=== PATIENT | male | born 1970 | race Caucasian/White ===

== ENCOUNTER 2018-02-24 16:00 | Outpatient (RCR) | payer OTHER, SELFPAY ==
--- NOTE | 2018-02-17 13:18 | HP.PTEVAL ---
Patient's Visit Information DARIEN LOVING is a 47 year old M referred to Physical Therapy by DAVID Conley with a diagnosis of R biceps tendonitis. Date of Evaluation: 02/17/18 Physical Therapist: Dylan Miranda PT, - Visit Plan Frequency: 1x/Week Duration: 1 Week Plan: Issue HEP of R shoulder rot cuff strengthening and scap stab ex's - Subjective Subjective: Pt reports he has had pain in his R shoulder for about one month. Pt reports he was lifting weights in a gym when he noticed severe R shoulder pain. Pt reports His pain progressively worsened to the point he had to see a Dr. Pt reports he did receive an injection, which has decreased his pain trendously. Pt is R hand dominant. Pt reports his goal is to be able to bench 305 pounds again without pain. No T or N at this time. Pt denies sleep diff secondary to pain. 0/10 at rest, 1/10 while benching. - Pain R shoulder Pain Intensity (Out of 10): 0 Pain Intensity Range: 1 - Objective Neuro: B UE sensation is WNL to light touch. B bicepital reflex= 1/3. Palpation: Pain on the anterior aspect. No obvious deformity. ROM: flex= 170, abd= 165, ER= 80, IR WNL; R shoulder flex= 170, abd= 170, ER= 80, IR WNL. MMT: B shoulder 5/5 throughout. Special test: pos speeds test - Goals Goal 1:: I with HEP in one visit Goal Time Frame: 1 Week - Rehabilitation Potential Physical Therapy Diagnosis: R shoulder pain and difficulty with lifting weights secondary to R biceps tendonitis Rehabilitation Potential: Good - Anticipated Interventions Patient/Client Instruction: Educate patient on: Condition, Plan of Care For the Purpose of:: To improve self management Therapeutic Exercise to Include: Strength training, Scapular Strength/Stabilization For the Purpose of:: To decrease pain, To improve muscle performance and motor function Ultrasound (thermal/non thermal): Yes For the Purpose of:: To decrease pain Thank you for the opportunity to evaluate your patient. For Medicare and Medicare HMO plans, please review the plan of care and approve it. It will need to be FAXED BACK to us at [phone] for Medicare purposes. Please let me know if there are questions or concerns regarding this plan of care. Physician Signature: Date:
--- NOTE | 2018-02-17 13:21 | HP.PTEVAL_ITS ---
Patient's Visit Information DARIEN LOVING is a 47 year old M referred to Physical Therapy by DAVID Conley with a diagnosis of R biceps tendonitis. Date of Evaluation: 02/17/18 Physical Therapist: Dylan Miranda PT, - Visit Plan Frequency: 1x/Week Duration: 1 Week Plan: Issue HEP of R shoulder rot cuff strengthening and scap stab ex's - Subjective Subjective: Pt reports he has had pain in his R shoulder for about one month. Pt reports he was lifting weights in a gym when he noticed severe R shoulder pain. Pt reports His pain progressively worsened to the point he had to see a Dr. Pt reports he did receive an injection, which has decreased his pain trendously. Pt is R hand dominant. Pt reports his goal is to be able to bench 305 pounds again without pain. No T or N at this time. Pt denies sleep diff secondary to pain. 0/10 at rest, 1/10 while benching. - Pain R shoulder Pain Intensity (Out of 10): 0 Pain Intensity Range: 1 - Objective Neuro: B UE sensation is WNL to light touch. B bicepital reflex= 1/3. Palpation: Pain on the anterior aspect. No obvious deformity. ROM: flex= 170, abd= 165, ER= 80, IR WNL; R shoulder flex= 170, abd= 170, ER= 80, IR WNL. MMT: B shoulder 5/5 throughout. Special test: pos speeds test - Goals Goal 1:: I with HEP in one visit Goal Time Frame: 1 Week - Rehabilitation Potential Physical Therapy Diagnosis: R shoulder pain and difficulty with lifting weights secondary to R biceps tendonitis Rehabilitation Potential: Good - Anticipated Interventions Patient/Client Instruction: Educate patient on: Condition, Plan of Care For the Purpose of:: To improve self management Therapeutic Exercise to Include: Strength training, Scapular Stren gth/Stabilization For the Purpose of:: To decrease pain, To improve muscle performance and motor function Ultrasound (thermal/non thermal): Yes For the Purpose of:: To decrease pain Thank you for the opportunity to evaluate your patient. For Medicare and Medicare HMO plans, please review the plan of care and approve it. It will need to be FAXED BACK to us at [phone] for Medicare purposes. Please let me know if there are questions or concerns regarding this plan of c are. Physician Signature: Date:
--- NOTE | 2018-03-31 15:44 | HP.PTDCSUM ---
HP - PT D/C Summary It has been my pleasure to treat DARIEN LOVING under orders from DAVID Conley, for the diagnosis of R biceps tendonitis for a total of 2 visit(s). Discharge Date: Please see the following information for a summary of their discharge status. - Subjective Subjective: No pain this date - Pain R shoulder Pain Intensity (Out of 10): 0 - Overall Improvement % Improvement: 100 - Objective Objective/Function: Pt now I with HEP - Goals Goal 1:: I with HEP in one visit - Plan Plan: Discharge - D/C Information If there are questions or concerns regarding this patient's physical therapy, please feel free to call me at [phone]. Thank you for the referral of this patient. Sincerely, Dylan Miranda, PT,
== END 2018-02-24 19:00 | disposition home or self-care (01) ==
LOC: PT 16:00
PROVIDERS: Family Provider Family Medicine; PCP Family Medicine; Referring Provider Physician Assistant; Visit Provider Physician Assistant
DX: M75.21 Bicipital tendinitis, right shoulder (principal); M75.80 Other shoulder lesions, unspecified shoulder
CPT/HCPCS: 97035; 97110; 97162

== ENCOUNTER 2019-04-30 09:56 | Emergency (ER) | payer OTHER, SELFPAY ==
[2019-04-30 09:57] VITALS: BP 130/73; PULSE 66; RESP 16; TEMP 36.8; O2SAT 99; BMI 29.0
--- NOTE | 2019-04-30 10:20 | RAD_ITS ---
STUDY: X-RAY CHEST REASON FOR EXAM: Male, 48 years old. Feels like pill is stuck in the throat TECHNIQUE: PA and lateral views of the chest. COMPARISON: None. FINDINGS: No radiopaque foreign body noted The lungs are clear and expanded. There is no demonstrated pleural abnormality. Normal size heart. Normal mediastinum and manuel. Normal visualized pulmonary arteries. Normal visualized aortic arch and descending thoracic aorta. Normal visualized thoracic spine. Normal visualized ribs, clavicles, and shoulders. There is no demonstrated abnormality of the visualized soft tissue structures of the upper abdomen. RAD/Chest PA and Lateral IMPRESSION: Normal x-ray examination of the chest. No radiopaque foreign body. Electronically Signed: Sanjay Ruiz DO at 11:08 EST Tel , Service support ,
[2019-04-30] MEDS: Ketorolac 15 MG/ML Vial IM (10:27)
--- NOTE | 2019-04-30 10:56 | ED.VIS.GEN ---
History of Present Illness <Megan Aly - Last Filed: 04/30/19 10:56> Narrative: 48-year-old male presents with esophageal irritation. States that 4 days ago he woke up in the middle of the night to use the bathroom and had been started on an antibiotic for a skin cyst which was infected which he took at that time. States when he woke up he had a sore throat which is worsened since that time. Worse with swallowing. Patient is able to swallow his own saliva. Denies any shortness of breath. <Marcus Chu - Last Filed: 04/30/19 11:41> Chief Complaint: Sore Throat Past Medical History Surgical History: no surgical history Smoking Status: Never smoker - Family History Maternal Family History: Reports: No pertinent history <Megan Aly - Last Filed: 04/30/19 10:56> <Marcus Chu - Last Filed: 04/30/19 11:41> - Allergies and Home Meds Allergies/Adverse Reactions: Allergies levofloxacin [From Levaquin] Adverse Reaction (Verified 04/30/19 09:57) Nausea Primary Care Physician: Kaushik Torres MD [Primary Care Provider] - Review of Systems General: Denies: Chills, Fever, Sweats Eyes: Denies: Visual changes - bilaterally, Diplopia ENT: Reports: Sore throat. Denies: Rhinorrhea Cardiovascular: Denies: Chest pain, Palpitations Respiratory: Denies: Dyspnea, Cough, Dyspnea on exertion Gastrointestinal: Denies: Abdominal pain, Nausea, Vomiting, Diarrhea, Melena, Hematochezia Genitourinary: Denies: Dysuria, Hematuria, Frequency Musculoskeletal: Denies: Back pain, Extremity Pain Skin: Denies: Rash, Wounds Neurological: Denies: Headache, Weakness, Numbness <Marcus Chu - Last Filed: 04/30/19 11:41> Physical Exam Vital Signs/Narrative: Vital Signs Temp Pulse Resp BP Pulse Ox 04/30/19 09:57 98.3 F 66 16 130/73 H 99 <Megan Aly - Last Filed: 04/30/19 10:56> Vital Signs/Narrative: Vital Signs Temp Pulse Resp BP Pulse Ox 04/30/19 09:57 98.3 F 66 16 130/73 H 99 Inital Vital Signs reviewed: Yes General: Well nourished, Well developed, No Acute Distress Head: Normocephalic, Atraumatic Eyes: Perrl, EOMI ENT: Moist mucous membranes, No rhinorrhea Neck: Supple, Nontender Cardiovascular: Regular rate, Regular rhythm, No murmurs Respiratory: No distress, CTA bilaterally, Chest nontender Abdomen: Soft, Nontender, Nondistended, Normal bowel sounds Back: Nontender, Normal Inspection Extremities: Nontender, No edema Skin: Normal color, No rash Neurological: Alert, Oriented x3, Cranial nerves II-XII grossly intact, Normal Strength, Normal Sensation Psychological: Normal affect, Normal Mood <Marcus Chu - Last Filed: 04/30/19 11:41> Diagnostic/Tx/Re-eval - Medical Decision Making Patient seen with Dr. Plummer agree with history and physical exam as above, patient reports he swallowed an antibiotic pill a few days ago and he feels if the antibiotic pill did not go down and it may be stuck in his esophagus or injured his esophagus, he is having no difficulty with speaking or breathing or executing daily activities,, on exam his HEENT exam is unremarkable lungs are clear heart tones normal M soft nontender He has no difficulty with swallowing generally, he has in no distress now, given all the above we will obtain chest x-ray see the chart for full detail management options and disposition <Megan Aly - Last Filed: 04/30/19 10:56> Chest X-Ray - ED: 2 View No acute process indicated on chest x-ray. - Medical Decision Making Patient appears well nontoxic. Vital signs within normal limits. Chest x-ray normal. Patient likely has pill esophagitis for which she was given a GI cocktail as well as intramuscular Toradol. Will be given Protonix for home and follow-up with his primary care provider Dr. Torres who can refer him to [facility] if warranted. Patient was agreeable and asked to return for new or worsening symptoms. Discharged home in stable condition. <Marcus Chu - Last Filed: 04/30/19 11:41> ED Disposition <Megan Aly - Last Filed: 04/30/19 10:56> <Marcus Chu - Last Filed: 04/30/19 11:41> - Plan for ED Patient: Disposition: Psychiatric Hospital or Unit Diagnosis: Pill esophagitis Prescriptions: Pantoprazole Sodium [Protonix] 40 mg PO DAILY #14 tab Prescription Printed Referrals: Kaushik Torres MD [Primary Care Provider] - Additional Instructions: You have been diagnosed with pill esophagitis. Follow up with your primary care provider for referral to GI.
[2019-04-30] MEDS: Mag Hydrox/Al Hydrox/Simeth 30 ML UDC PO (11:58)
[2019-04-30 12:00] VITALS: RESP 16
--- NOTE | 2019-04-30 12:05 | ED.RN ---
REVIEWED D/C INSTRUCTIONS, FOLLOW UP CARE, PRESCRIPTION, AND S/S THAT WOULD WARRANT A RETURN TO THE ED WITH PT. PT VERBALIZED AN UNDERSTANDING AND DENIES FURTHER QUESTIONS FOR THIS RN. PT SKIN P/W/D, RESP EVEN AND UNLABORED, PT A&O X 3, NO DISTRESS NOTED. PT AMBULATED OUT OF ED, GAIT STEADY.
== END 2019-04-30 12:08 | disposition home or self-care (01) ==
PROVIDERS: Emergency Provider Emergency Medicine; Family Provider Family Medicine; PCP Family Medicine
DX: K20.8 Other esophagitis (principal); B99.9 Unspecified infectious disease; Z79.2 Long term (current) use of antibiotics
CPT/HCPCS: 71046; 96372; 99283

== ENCOUNTER → 2020-10-23 05:46 | Outpatient (CLI) | payer OTHER, SELFPAY ==
[2020-10-23 07:11] LABS: Protein, Urine (Random) 17.8 mg/dL (<11.9); Protein:Creat Ratio 84 mg/g CRE (0-200)
[2020-10-23 07:24] LABS: Albumin, Serum 3.7 g/dL (3.2-5.0); BUN 24 mg/dL (7-18); BUN/Creat Ratio 18.6 RATIO (10-20); Chloride 106 mmol/L (98-107); Creatinine, Serum 1.29 mg/dL (0.70-1.30); EST Glomerular Filtration Rate 63 mL/min (>60); Est Glom Filt Rate - Afr Amer 76 mL/min (>60); Glucose 80 mg/dL (74-106); Phosphorus 2.9 mg/dL (2.5-4.9); Potassium 3.9 mmol/L (3.5-5.1); Sodium Level 139 mmol/L (136-145)
== END ==
PROVIDERS: PCP Family Medicine; Referring Provider Internal Medicine Nephrology; Visit Provider Internal Medicine Nephrology
DX: R79.89 Other specified abnormal findings of blood chemistry (principal)
CPT/HCPCS: 80069; 82570; 84156

== ENCOUNTER → 2022-04-30 | Outpatient (CLI) | payer OTHER, SELFPAY ==
--- NOTE | 2022-04-30 06:52 | MRI_ITS ---
STUDY: MRI LEFT SHOULDER REASON FOR EXAM: Male, 51 years old. Weightlifting injury. Pain. History of previous surgery. TECHNIQUE: Standardized fat and water weighted pulse sequences were obtained in all 3 orthogonal planes. COMPARISON: X-rays of the left shoulder dated December 22, 2021. FINDINGS: Supraspinatus tendinosis with thickening and increased signal intensity. Partial articular surface tear of the mid fibers measuring 3 mm in widest diameter and occupying approximately 50% of the tendon thickness (coronal series 4 images 6-10). Infraspinatus tendinosis with thickening and articular surface fraying without a full-thickness tear (coronal series 4 images 11-14). Subscapularis tendinosis with thickening and increased signal intensity without a full-thickness tear (axial series 2 images 8-13). Normal teres minor tendon. Normal supraspinatus muscle. Normal infraspinatus muscle. Normal subscapularis muscle. Normal teres minor muscle. Mild arthrosis of the glenohumeral joint with a small glenohumeral joint effusion (axial series 2 images a-17 comparison. Cystic change in the humeral head (axial series 2 images 7-13). Normal biceps labral complex. Normal intracapsular long biceps tendon. Linear increased signal intensity within the superior labrum without a displaced tear (coronal series 4 images 7-scan). Normal capsulo- ligamentous complex. Normal rotator interval. AC joint hypertrophy with minimal bone marrow edema in the distal clavicle and acromion with narrowing of the subacromial space (coronal series 4 images 4-8). There is a Type II morphology (curved), with a neutral orientation. Small amount of fluid in the subacromial-subdeltoid bursa (coronal series 4 image 6). Normal visualized coracohumeral and coracoacromial ligaments. Normal quadrilateral space. Normal axillary space. Normal deltoid muscle. Normal trapezius muscle. MRI/Upper Ext Joint Only(Routine) IMPRESSION: Supraspinatus, infraspinatus and subscapularis tendinosis as described. Small partial articular surface tear of the supraspinatus. Mild arthrosis of the glenohumeral joint. Cystic change in the humeral head. Linear increased signal intensity within the superior labrum without a detached tear. AC joint hypertrophy with minimal narrowing of the subacromial space. Glenohumeral joint effusion with fluid in the subacromial-subdeltoid bursa. Electronically Signed: Sourav Turner, at 13:14 EST ,
== END | disposition home or self-care (01) ==
PROVIDERS: PCP Family Medicine; Referring Provider Physician Assistant; Visit Provider Physician Assistant
DX: S49.92XA Unspecified injury of left shoulder and upper arm, initial encounter (principal); M25.512 Pain in left shoulder
CPT/HCPCS: 73221

== ENCOUNTER 2024-02-01 21:45 | Emergency (ER) | payer OTHER, SELFPAY ==
[2024-02-01 21:45] VITALS: BP 143/79; PULSE 72; RESP 18; TEMP 36.1; O2SAT 99; BMI 28.5
--- NOTE | 2024-02-01 22:25 | RAD_ITS ---
STUDY: X-RAY CHEST REASON FOR EXAM: Male, 53 years old. Chest pain TECHNIQUE: PA and lateral views of the chest. COMPARISON: April 30, 2019 FINDINGS: The lungs are clear and expanded. There is no demonstrated pleural abnormality. Normal size heart. Normal mediastinum and manuel. Normal visualized pulmonary arteries. Normal visualized aortic arch and descending thoracic aorta. Normal visualized thoracic spine. Normal visualized ribs, clavicles, and shoulders. There is no demonstrated abnormality of the visualized soft tissue structures of the upper abdomen. RAD/Chest PA and Lateral IMPRESSION: Normal x-ray examination of the chest. Electronically Signed: Tone Soto MD at 23:06 EDT ,
[2024-02-01 22:30] LABS: Absolute Lymphocyte Count 3.42 X10^3/uL (0.83-4.51); Basophil# 0.04 X10^3/uL; Basophil% 0.4 % (0-1); Eosinophil# 0.44 X10^3/uL; Eosinophils% 4.1 % (0-5); Hematocrit 43.7 % (40-54); Hemoglobin 14.8 g/dL (13.0-16.5); Lymphocyte # 3.42 X10^3/ul (0.83-4.51); Lymphocyte % 32.1 % (19-41); Mean Corp Hgb Conc 33.9 g/dL (32-36); Mean Corpuscular Hgb 29.9 pg (27.0-32.0); Mean Corpuscular Volume 88.3 fL (80-94); Mean Platelet Vol. 8.6 fl (6.2-12.0); Monocyte# 0.71 X10^3/uL; Monocyte% 6.7 % (0-10); NRBC Flagged by Analyzer 0 % (0-5); Neutrophil # 6.04 X10^3/uL (2.7-7.7); Neutrophil % 56.5 % (47-70); Platelet Count 219 K/mm3 (150-450); RBC Distribution Width CV 12.4 % (11.6-14.6); Red Blood Count 4.95 M/mm3 (4.6-6.2); White Blood Count 10.7 K/mm3 (4.4-11.0)
--- NOTE | 2024-02-01 22:33 | EDS_ITS ---
HPI History of Present Illness Chief Complaint: Chest Pain Informant: patient Narrative Narrative: Patient is a 53-year-old male with past medical history of hypertension and mild hyperlipidemia. He states that around 915 this evening he developed some midsternal chest discomfort which she described as a pressure and he felt mild radiation towards his jaw. He states there was no associated nausea vomiting or diaphoresis. He reports that symptoms lasted for approximately 30 minutes to an hour and then have spontaneously resolved. He states that he is unsure if this was cardiac in nature and in order to rule this in or out he presents for evaluation. He denies any previous history of cardiovascular disease or illicit drug use or excessive stimulant use. He denies any recent surgery or history of DVT/PE but does admit to prolonged travel. [facility] Medical History Arthrosis of left acromioclavicular joint SLAP lesion of left shoulder Left rotator cuff tear Hypertension Home Medications ?Medication ?Instructions ?Recorded ?Last Taken ?Type pantoprazole 40 mg tablet,delayed 40 mg PO DAILY #14 tabs 04/30/19 Unknown Rx release meloxicam 15 mg tablet 15 mg PO DAILY #30 tabs 12/22/21 Unknown Rx Allergy/AdvReac Type Severity Reaction Status Date / Time levofloxacin (From Levaquin) AdvReac Nausea Verified 02/01/24 21:45 Surgical History distal bicep repair H/O hernia repair Social History Smoking Status: Never smoker [facility] ED Constitutional Constitutional ED: Denies chills or fever(s) Eyes Eyes: Denies blurry vision or change in vision ENT ENT ED: Denies sore throat Cardiovascular Cardiovascular: Reports chest pain; Denies palpitations or racing heartbeat Respiratory/Chest Respiratory/Chest: Denies cough or dyspnea Gastrointestinal Gastrointestinal: Denies abdominal pain, diarrhea, nausea or vomiting Genitourinary Genitourinary ED: Denies dysuria Musculoskeletal Musculoskeletal: Denies back pain Integumentary Denies rash Neurologic Neurologic: Denies headache(s) Hematologic/Lymphatic Hematologic/Lymphatic: Denies easy bleeding or easy bruising EXAM Physical Exam Const Vital Signs: 02/01/24 21:45 09/17/24 22:45 02/01/24 23:37 Temperature 97 F L Temperature Source Temporal Pulse Rate 72 70 67 Respiratory Rate 18 14 17 Blood Pressure 143/79 H Blood Pressure Mean 100 Pulse Ox 99 100 Oxygen Delivery Method Room Air 02/02/24 00:00 Temperature Temperature Source Pulse Rate 67 Respiratory Rate 12 Blood Pressure 126/81 H Blood Pressure Mean 96 Pulse Ox 98 Oxygen Delivery Method Room Air Positive well nourished and well developed General Appearance ED: well developed; Negative for pallor HEENT HEENT Narrative: Normocephalic atraumatic Eyes PERRL and EOMs intact bilaterally General Eye ED: Negative for scleral icterus Neck supple and no JVD Neck Narrative: No nuchal rigidity or meningeal signs Chest Wall palpation of chest normal Chest Narrative: No bony deformity or crepitance Resp normal respiratory effort and clear to auscultation bilaterally Cardio regular rate and regular rhythm Rate: other Other Details: Heart is regular rate and rhythm without murmurs rubs or gallop No carotid bruit noted Radial and carotid pulses are equal and symmetric GI normal to inspection, nondistended, normoactive bowel sounds, non-tender, non- distended and no masses GI Narrative: No voluntary guarding or rigidity or pulsatile mass Auscultation: normoactive bowel sounds Palpation: soft Extremity normal to inspection Extremity Narrative: No asymmetric edema no pitting edema negative Homans' sign bilaterally Neuro oriented x3, CN's II-XII intact bilaterally and no sensory deficits noted Sensorium / Orientation: alert Motor Exam: strength 5/5 throughout Psych mental status grossly normal Skin no rashes or lesions noted General Skin Exam: Negative for jaundice or pallor MDM MDM MDM Narrative Medical decision making narrative: The patient arrived to the ER slightly hypertensive but otherwise with stable vitals. He also reported spontaneous resolution of his symptoms prior to arriva l. Differential diagnosis is for acute coronary syndrome versus cardiac dysrhythmia versus pneumonia versus pneumothorax versus pulmonary embolus. Secondary to this basic blood work with chest x-ray and a D-dimer ordered. Chest x-ray revealed no lung pathology and no widening mediastinum this coupled with a normal D-dimer goes against pulmonary embolus and/or dissection. The patient's initial troponin was 7 and the delta was 8 which is not clinically significant and not consistent with acute coronary syndrome. The patient was kept on the monitor and there was no cardiac dysrhythmia. On reevaluation he is resting comfortably and his symptoms remain resolved and therefore at this time with overall negative workup and spontaneous resolution of symptoms there is no need to keep the patient in the hospital any further and he is otherwise safe for discharge. History & Record Review Discussion w/independent historian: Patient and Significant other Lab Data Attestation: I reviewed the patient's lab results. Labs: Laboratory Results - last 24 hr 02/01/24 02/02/24 21:56 00:05 WBC 10.7 RBC 4.95 Hgb 14.8 Hct 43.7 MCV 88.3 MCH 29.9 MCHC 33.9 RDW Std Deviation 40.0 RDW Coeff of Rufina 12.4 Plt Count 219 MPV 8.6 Immature Gran % (Auto) 0.200 Neut % (Auto) 56.5 Lymph % (Auto) 32.1 [place] % (Auto) 6.7 Eos % (Auto) 4.1 Baso % (Auto) 0.4 Absolute Neuts (auto) 6.0 Absolute Lymphs (auto) 3.42 Nucleated RBC % 0 D-Dimer Quant (PE/DVT) < 0.27 L Sodium 138 Potassium 4.0 Chloride 105 Carbon Dioxide 27.0 Anion Gap 6 BUN 23 H Creatinine 1.31 H Estim Creat Clear Calc 79.01 Est GFR (MDRD) Af Amer 74 Est GFR (MDRD) Non-Af 61 BUN/Creatinine Ratio 17.6 Glucose 101 Calcium 9.4 Magnesium 1.9 Troponin I High Sens 7 8 Radiography Diagnostic Testing: Clinical Impression(s) from Imaging Studies Chest X-Ray 02/01/24 22:25 IMPRESSION: Normal x-ray examination of the chest. Electronically Signed: Tone Soto MD at 23:06 EDT , Chest x-ray as interpreted by the emergency medicine physician reveals no acute infiltrate pneumothorax pleural effusion or widening of the mediastinum Discharge Plan Triage Chief Complaint: Chest Pain ED Provider: Noam Dasilva Dx/Rx/DC Orders Clinical Impression: Nonspecific chest pain, Hypertension Instructions: ED Chest Pain, Uncertain Cause Prescriptions: No Action meloxicam 15 mg tablet 15 mg PO DAILY Qty: 30 0RF pantoprazole 40 MG tablet 40 mg PO DAILY Qty: 14 0RF Primary Care Provider: Kaushik Torres Referrals: Kaushik Torres MD [Primary Care Provider] - Activity Restrictions/Additional Instructions: Please follow-up with your family doctor for repeat evaluation and return to the ER should you have any further concerns Print Language: Zambian Disposition Disposition: Home, Self Care
[2024-02-01 22:45] VITALS: PULSE 70; RESP 14; O2SAT 100
[2024-02-01 22:47] LABS: Anion Gap 6 (5-15); BUN 23 mg/dL (7-18); BUN/Creat Ratio 17.6 RATIO (10-20); Calcium,Total 9.4 mg/dL (8.5-10.1); Chloride 105 mmol/L (98-107); Creatinine, Serum 1.31 mg/dL (0.70-1.30); EST Glomerular Filtration Rate 61 mL/min (>60); Est Glom Filt Rate - Afr Amer 74 mL/min (>60); Estimated Creatinine Clearance 79.01 ml/min; Glucose 101 mg/dL (74-106); Magnesium 1.9 mg/dL (1.6-2.6); Sodium Level 138 mmol/L (136-145); Troponin-I HS 7 pg/mL (3.0-78.0)
[2024-02-01 22:56] LABS: D-Dimer Quantitative (DVT/PE) < 0.27 FEU/ug/m (0.27-0.49)
[2024-02-01 23:37] VITALS: PULSE 67; RESP 17
[2024-02-02] VITALS: BP 126/81; PULSE 67; RESP 12; O2SAT 98
[2024-02-02 00:32] LABS: Troponin-I HS 8 pg/mL (3.0-78.0)
[2024-02-02 00:58] VITALS: BP 123/88; PULSE 68; RESP 16; TEMP 36.8; O2SAT 98
== END 2024-02-02 01:00 | disposition home or self-care (01) ==
PROVIDERS: Emergency Provider Emergency Medicine; PCP Family Medicine; Visit Provider Emergency Medicine
DX: R07.89 Other chest pain (principal); I10 Essential (primary) hypertension; E78.5 Hyperlipidemia, unspecified; Z79.899 Other long term (current) drug therapy
CPT/HCPCS: 71046; 80048; 83735; 84484; 85025; 85379; 93005; 99283; A4216